=== PATIENT | female | born 1945 | race Caucasian/White ===

== ENCOUNTER 2018-03-08 07:17 | Outpatient (CLI) | payer MEDICARE ==
[2018-03-08 08:09] LABS: ALT (SGPT) 27 U/L (8-55); AST (SGOT) 25 U/L (5-34); Albumin 4.1 g/dL (3.4-4.8); Alkaline Phosphatase 128 U/L (40-150); Anion Gap 13 mmol/L (10-20); BUN (Urea Nitrogen) 18 mg/dL (9.8-20.1); Bilirubin, Total 0.8 mg/dL (0.2-1.2); Calc. Creatinine Clearance 0 mL/min (70-130); Calcium 9.7 mg/dL (7.8-10.44); Carbon Dioxide 28 mmol/L (23-31); Chloride 104 mmol/L (98-107); Cholesterol 180 mg/dl (< 200 Desired); Estimated GFR-MDRD 69; Globulin 3.2 g/dL (2.4-3.5); Glucose 116 mg/dL (83-110); HDL Cholesterol 61 mg/dL (>60 Neg Risk); LDL Cholesterol, Calculated 89 mg/dL; Potassium 3.3 mmol/L (3.5-5.1); Protein, Total 7.3 g/dL (6.0-8.3); Sodium 142 mmol/L (136-145); Triglycerides 151 mg/dL (Less than 150)
[2018-03-08 08:31] LABS: Free T4 (Free Thyroxine) 0.95 ng/dL (0.70-1.48); Thyroid Stimulating Hormone 3.2325 uIU/mL (0.35-4.94)
[2018-03-08 10:30] LABS: Hemoglobin A1c 5.9 % (4.0-6.0)
[2018-03-08 11:07] LABS: Hep C IgG Ab Non-Reactive (NonReactive); Hep C Index 0.41 S/CO (0-0.79); Vitamin D, 25 Hydroxy 38.1 ng/ml (> 30.0)
== END 2018-03-08 07:18 | disposition home or self-care (01) ==
LOC: SCSLAB 07:17
PROVIDERS: ATTEND Family Medicine
DX: Z11.59 Encounter for screening for other viral diseases (principal); E03.9 Hypothyroidism, unspecified; E78.5 Hyperlipidemia, unspecified; R73.09 Other abnormal glucose; E55.9 Vitamin D deficiency, unspecified
CPT/HCPCS: 36415; 80053; 80061; 82306; 83036; 84439; 84443; 84481; 86803

== ENCOUNTER 2019-03-12 06:13 | Outpatient (CLI) | payer MEDICARE ==
[2019-03-12 11:35] LABS: #Eosinphils 0.1 thou/uL (0.0-0.7); #Lymphocytes 0.7 thou/uL (1.20-3.40); #Monocytes 0.5 thou/uL (0.11-0.59); #Neutrophils 3.5 thou/uL (1.40-6.50); %Basophils 0.4 % (0.0-1.0); %Eosinophils 2.4 % (0.0-10.0); %Lymphocytes 15.3 % (21.0-51.0); %Monocytes 9.8 % (0.0-10.0); %Neutrophils 72.1 % (42.0-75.0); Hemoglobin 14.1 g/dL (12.0-16.0); Mean Corpuscular HGB CONC 33.3 g/dL (32.0-36.0); Mean Corpuscular Hemoglobin 30.6 pg (27.0-31.0); Mean Platelet Volume 7.2 fL (7.4-10.4); Platelet Count 207 thou/uL (130-400); RBC Distribution Width 11.9 % (11.5-14.5); Red Blood Cell (RBC) Count 4.62 mill/uL (4.20-5.40); White Blood Cell (WBC) Count 4.8 thou/uL (4.8-10.8)
[2019-03-12 11:40] LABS: PTT 27.5 SEC (22.9-36.1); Prothrombin Time 12.8 SEC (12.0-14.7)
[2019-03-12 11:54] LABS: Anion Gap 11 mmol/L (10-20); BUN (Urea Nitrogen) 18 mg/dL (9.8-20.1); Calc. Creatinine Clearance 0 mL/min (70-130); Calcium 9.4 mg/dL (7.8-10.44); Carbon Dioxide 28 mmol/L (23-31); Chloride 103 mmol/L (98-107); Estimated GFR-MDRD 66; Glucose 89 mg/dL (83-110); Potassium 3.3 mmol/L (3.5-5.1); Sodium 139 mmol/L (136-145)
[2019-03-12 11:55] LABS: Bacteria/HPF None Seen HPF (None Seen); Bilirubin Negative (Negative); Blood, Urine Negative (Negative); Clarity Clear (Clear); Glucose, Urine (Dipstick) Normal (Negative); Leukocyte 250 Leu/uL (Negative); Nitrite Negative (Negative); Protein, Urine (Dipstick) Negative (Neg-Trace); WBC/HPF 0-3 HPF (0-3)
== END 2019-03-12 06:14 | disposition home or self-care (01) ==
LOC: LABBT 06:13
PROVIDERS: ATTEND Orthopaedic Surgery
DX: Z01.818 Encounter for other preprocedural examination (principal); M17.11 Unilateral primary osteoarthritis, right knee
CPT/HCPCS: 80048; 81001; 85025; 85610; 85730; 87081; 93005; 93010

== ENCOUNTER 2019-03-20 06:12 | Day surgery (SDC) | payer MEDICARE ==
[2019-03-12 10:41] VITALS: BMI 30.9
[2019-03-20] MEDS ORDERED: Fentanyl 100 MCG/2 ML VIAL SLOW IVP PRN ×3 (07:04→08:52)
[2019-03-20] MEDS ORDERED: Zolpidem Tartrate 5 MG TAB PO PRN ×2 (07:04→08:51)
[2019-03-20] MEDS ORDERED: diphenhydrAMINE 25 MG CAP PO PRN (07:04)
[2019-03-20] MEDS ORDERED: Acetaminophen 325 MG TAB PO PRN ×2 (07:04→08:51)
[2019-03-20] MEDS ORDERED: HYDROcodone/Acetaminophen 10/325 mg Tablet PO PRN ×3 (07:04→08:51)
[2019-03-20] MEDS ORDERED: Ondansetron PF 4 MG/2 ML Vial IVP PRN ×2 (07:04→08:51)
[2019-03-20] MEDS ORDERED: Promethazine HCl 25 MG/ML VIAL IM PRN ×3 (07:04→10:52)
[2019-03-20] MEDS ORDERED: traMADol HCl 50 MG TAB PO PRN ×2 (07:04→08:51)
[2019-03-20] MEDS ORDERED: Sodium Chloride 0.9% 100 ML ONE (07:20)
[2019-03-20] MEDS ORDERED: Tranexamic Acid 1,000 MG/10 ML VIAL ONE (07:20)
[2019-03-20] MEDS ORDERED: Fentanyl 100 MCG/2 ML VIAL ONE ×2 (08:17→09:10)
[2019-03-20] MEDS ORDERED: Midazolam HCl 2 mg/2 ml Vial ONE (08:17)
[2019-03-20] MEDS ORDERED: Ropivacaine HCl/PF 250 ML in Premix Bag 1 BAG NERVE BLCK SCH (08:51)
[2019-03-20] MEDS ORDERED: Non-Formulary Item 1 EACH (Multivit-Min/Fa/Lycopene/Lut [Centrum Silver] 1 TABLET) PO SCH (09:00)
[2019-03-20] MEDS ORDERED: Promethazine HCl 25 MG/ML VIAL SLOW IVP PRN (10:52)
[2019-03-20] MEDS ORDERED: Meperidine HCl/PF 25 MG/ML VIAL SLOW IVP PRN (10:52)
[2019-03-20] MEDS ORDERED: PACU-Morphine 4MG/ML VIAL SLOW IVP PRN (10:52)
--- NOTE | 2019-03-20 11:39 | RAD ---
Exam:2 views right knee HISTORY: Status post arthroplasty COMPARISON: None FINDINGS: Postoperative changes compatible with right knee arthroplasty. Near anatomic alignment. IMPRESSION: Expected postoperative changes
[2019-03-20] MEDS ORDERED: EPHEDRINE 25 MG/5 ML SYRINGE ONE (11:56)
[2019-03-20] MEDS ORDERED: Bupivacaine HCl 0.5%/Epinephrine 1:200,000/PF 30 ml Vial ONE (11:56)
[2019-03-20] MEDS ORDERED: Lidocaine 1% PF 5 ML VIAL ONE (11:56)
[2019-03-20] MEDS ORDERED: Dexamethasone 20 MG/5 ML VIAL ONE (11:56)
[2019-03-20] MEDS ORDERED: Ondansetron PF 4 MG/2 ML Vial ONE (11:56)
[2019-03-20] MEDS ORDERED: Ropivacaine 0.2% HCl/PF (40 MG/20 ML VIAL) ONE (11:56)
[2019-03-20] MEDS ORDERED: PROPOFOL 200 MG/20 ML VIAL ONE (11:56)
[2019-03-20] MEDS ORDERED: Ketorolac Tromethamine 30 MG/ML VIAL IVP SCH (14:00)
--- NOTE | 2019-03-20 14:10 | OP ---
DATE OF PROCEDURE: 03/20/2019 This is Julio Franks PA-C dictating a report for Glen Romano MD. 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 PROCEDURE PERFORMED: Cemented cruciate-sparing computer-assisted navigated right total knee arthroplasty. SURGEON: Glen Romano MD FAMILY SERVICE COUNSELOR: Julio Franks PA-C ANESTHESIA: General via LMA, augmented with indwelling adductor canal block and a single-shot sciatic block. COMPONENTS USED: [employer] Triathlon size 4 cruciate-retaining femoral component with a size 3 cemented primary tibial base plate, 11-mm polyethylene fixed bearing insert, and a 29 patella button. FINDINGS: End-stage severe degenerative tricompartmental disease, [id number] arthrosis, periarticular osteophyte formation, large serous effusion, hypertrophic synovium, and severe changes consistent with tricompartmental osteoarthritis. DRAINS: None. SPECIMENS: None. COMPLICATIONS: None. COUNTS: Correct. ESTIMATED BLOOD LOSS: Less than 100. TOURNIQUET TIME: 64 minutes at 300 mmHg. INPUT: 1300 mL of crystalloid. OUTPUT: 200 mL of clear yellow urine. INDICATIONS FOR SURGERY: Madeleine is a 73-year-old white female who has had progressive right knee pain and problem with standing and walking for the last 10 years. She has failed conservative management and elected to proceed with total knee arthroplasty as definitive treatment of pain. PROCEDURE IN DETAIL: After informed consent was obtained in the preoperative holding area, the patient was taken to the operative suite where general anesthesia was induced. Once adequate level of general anesthesia was obtained, the patient was positioned and a well-padded tourniquet was placed around the right proximal thigh. The right lower extremity was then prepped and draped in the usual sterile fashion. Prior to exsanguination, a time-out was called and all members of the surgical team agreed upon site, surgeon, and patient. The extremity was then exsanguinated and the tourniquet was raised. A midline longitudinal incision was then made directly over the patella extending 2 fingerbreadths above the superior pole of the patella and 2 fingerbreadths inferior to the inferior patellar pole of the patella. Deeper subcutaneous layers were dissected sharply and local bleeding was controlled with Bovie electrocautery. A quad tendon longitudinal split was then made sharply and a median parapatellar arthrotomy was carried out both sharp and with Bovie electrocautery, carried down to 1 fingerbreadth medial to the tibial tubercle. The knee was then placed into flexion and the patella was everted nicely, and a copious fat pad ectomy was performed, allowing for greater exposure of the tibia. The computer-assisted distal femoral fiducial was then placed and pinned firmly, and the distal femoral cutting guide was pinned firmly into place. The oscillating saw was then used to remove the appropriate amount of bone. The 4-in-1 cutting block was then placed on the distal femur and the oscillating saw was used to remove the appropriate amount of bone off the anterior, posterior, and chamfer cuts. After completion of bone cuts, the anterior cruciate ligament was resected sharply and the posterior cruciate ligament retractor was placed and the tibia was subluxed for better exposure. Partial meniscectomies were carried out, and the tibial computer-assisted fiducial was pinned, and the cutting guide was placed. Oscillating saw was then used to remove the bone, with Hohmann retractors used to take care and protect the collateral ligaments. After the tibial resection was performed, a laminar automatic driller and reamer was placed in between the freshened bone cuts. The knee placed at 90 degrees and further bilateral meniscectomies were carried out, and the curved osteotome and curettage were used to remove any excess bone spurs in the posterior compartment. The trial femoral component, tibial baseplate were placed with the appropriate polyethylene trial insert with an appropriate polyethylene spacer and patellar button. The knee was taken through full range of motion with flexion and extension from 0 to 90 degrees and patellar broach squarely in the trochlea without any squinting or subluxation noted. The knee was also stable to varus and valgus stressing at 0, 15, 45, and 90 degrees of flexion. The drawer was negative. All trial components were then removed and the keel punch was used to provide the appropriate defect in the tibia with a mallet. The freshened bone cuts were copiously irrigated with pulsatile lavage of about 1.5 L to remove all excess debris. The freshened bone cuts were then dried with suction and lap sponge. The knee was placed in flexion and retractors were placed to provide access to all bone cuts. Tobramycin-impregnated methyl methacrylate cement was then placed on the freshened bone cuts and implants which were malleted firmly into place. Curettage and [place] elevators were used to remove any excess bone cement. The knee was placed into full extension and the patellar button was placed under compression, and the cement was allowed to cure. Once completed, the components were again taken through full range of motion and copious irrigation of the knee was carried out with another liter of normal saline. All components were inspected fully with full range of motion and varus and valgus stressing. There was no laxity noted and full extension was observed clinically. Primary closure was accomplished with #2 interrupted Vicryl stitch of the arthrotomy defect. This was oversewn with a #2 running Quill barbed stitch. The subcutaneous layer was then closed with a running 0 barbed Monocryl stitch and skin closure accomplished with a running subcuticular 3-0 Monocryl barbed Quill stitch and augmented with cement on the skin. Tourniquet was lowered. Good spontaneous return of distal pulses was noted clinically and a sterile dressing was applied to the incision. The procedure was terminated without any complications. The patient was awakened in the operative suite and taken to the recovery room in stable condition. Job ID: [id number]
[2019-03-20] MEDS: Aspirin 81 mg Enteric Coated Tablet PO SCH ×2 (17:24→20:50)
[2019-03-20] MEDS: CEFAZOLIN 2 GM in Premix Bag 1 BAG IVPB SCH ×2 (17:24→23:51)
[2019-03-20] MEDS: Sodium Chloride 0.9% 1,000 ML IV SCH ×2 (17:24→17:56)
[2019-03-20] MEDS: Magnesium Oxide 250 MG TAB PO SCH (17:25)
[2019-03-20] MEDS: Hydrochlorothiazide 25 MG TAB PO SCH (17:25)
[2019-03-20] MEDS: Ketorolac Tromethamine 30 MG/ML VIAL IVP SCH ×3 (17:25→23:50)
[2019-03-20] MEDS: Losartan/Hydrochlorothiazide 100 mg/25 mg Tablet PO SCH (17:25)
[2019-03-20 18:43] LABS: #Lymphocytes 0.2 thou/uL (1.20-3.40); #Monocytes 0.4 thou/uL (0.11-0.59); #Neutrophils 6.4 thou/uL (1.40-6.50); %Basophils 0.5 % (0.0-1.0); %Eosinophils 0.1 % (0.0-10.0); %Lymphocytes 2.6 % (21.0-51.0); %Monocytes 5.8 % (0.0-10.0); %Neutrophils 91.1 % (42.0-75.0); Hemoglobin 12.6 g/dL (12.0-16.0); Mean Corpuscular HGB CONC 33.8 g/dL (32.0-36.0); Mean Corpuscular Hemoglobin 31.7 pg (27.0-31.0); Mean Platelet Volume 7.4 fL (7.4-10.4); Platelet Count 156 thou/uL (130-400); Red Blood Cell (RBC) Count 3.99 mill/uL (4.20-5.40); White Blood Cell (WBC) Count 7.1 thou/uL (4.8-10.8)
[2019-03-20 19:04] LABS: ALT (SGPT) 22 U/L (8-55); AST (SGOT) 19 U/L (5-34); Albumin 3.6 g/dL (3.4-4.8); Alkaline Phosphatase 88 U/L (40-110); Anion Gap 12 mmol/L (10-20); BUN (Urea Nitrogen) 15 mg/dL (9.8-20.1); Bilirubin, Total 0.3 mg/dL (0.2-1.2); Calc. Creatinine Clearance 60 mL/min (70-130); Calcium 8.4 mg/dL (7.8-10.44); Carbon Dioxide 25 mmol/L (23-31); Chloride 103 mmol/L (98-107); Estimated GFR-MDRD 54; Globulin 2.4 g/dL (2.4-3.5); Glucose 279 mg/dL (83-110); Magnesium 1.5 mg/dL (1.6-2.6); Potassium 3.5 mmol/L (3.5-5.1); Sodium 136 mmol/L (136-145)
--- NOTE | 2019-03-20 19:05 | CON ---
DATE OF CONSULTATION: 03/20/2019 REASON FOR CONSULTATION: Medical management. HISTORY OF PRESENT ILLNESS: Mrs. Silva is a pleasant 73-year-old woman, who is status post right total knee arthroplasty done earlier today. She has been referred for medical management and has a history of hypertension, hyperlipidemia, anxiety, and hypothyroidism. At present, the patient states she feels well and is without any complaints. She states she feels like she needs to have a bowel movement, but denies any abdominal pain or cramping. She has been passing flatus. Has had dinner and denies having any nausea or vomiting. Has not had any chest pain, palpitations, or shortness of breath. Denies any recent fevers, chills, or sweats. Overall, she feels well and is without any complaints. PAST MEDICAL HISTORY: 1. Hypertension. 2. Anxiety. 3. Depression. 4. Hypothyroidism. 5. Overactive bladder. 6. History of breast cancer. 7. Hyperlipidemia. PAST SURGICAL HISTORY: 1. Spine surgery for spinal stenosis. 2. Left knee replacement. 3. Hysterectomy. 4. Appendectomy. 5. Right mastectomy. 6. Recently, she has undergone a right total knee arthroplasty. FAMILY HISTORY: Hypertension, diabetes, lung cancer, and osteoarthritis. SOCIAL HISTORY: The patient is a former smoker. Denies any alcohol consumption or illicit drug use. She is and fully independent at baseline. ALLERGIES: NO KNOWN DRUG ALLERGIES. CURRENT MEDICATIONS: 1. Atorvastatin. 2. vitamin D3. 3. Hydrochlorothiazide. 4. Ibuprofen. 5. Synthroid. 6. Magnesium. 7. Multivitamin. 8. Tramadol. 9. [place]-3. 10. Venlafaxine. PHYSICAL EXAMINATION: GENERAL: The patient appears well developed, well nourished, is in no acute distress. HEENT: Normocephalic and atraumatic. Pupils are equal, round, and reactive to light. Sclerae icterus. Oropharynx is clear. NECK: Supple. No lymphadenopathy. LUNGS: Clear bilaterally without wheezes, rales, or rhonchi. CARDIAC: Regular rate and rhythm. ABDOMEN: Soft, nontender, and nondistended. Normoactive bowel sounds present. No guarding or rigidity. EXTREMITIES: No lower leg swelling or edema. NEUROLOGIC: Alert and oriented x3. SKIN: Warm and dry. LABORATORY DATA: Labs obtained on March 12, 2019 showed white count 4.8, hemoglobin 14.1, hematocrit 42.5, platelets 207, neutrophils 72.1%. Sodium 139, potassium 3.3, BUN 18, creatinine 0.85, GFR 66, and glucose 89. Urinalysis done at that time as well showed 2 urobilinogen, and 250 leukocyte esterase, 4 to 6 blood cells, and 4 to 6 squamous epithelial cells. Otherwise unremarkable. No nitrites. No bacteria. IMPRESSION AND PLAN: Ms. Silva is a pleasant 73-year-old woman, who is status post right knee total knee arthroplasty, who has been referred to us for medical management of the followin. Hypertension. Monitor blood pressure. Home medications have been restarted. 2. Hyperlipidemia. Home medications have been restarted. 3. Hypothyroidism. Synthroid has been restarted. 4. Anxiety/depression. Home medication has been restarted. 5. Gastrointestinal prophylaxis with famotidine. 6. Deep venous thrombosis prophylaxis with mechanical SCDs. 7. Code status full. Surrogate decision maker is her , Yasmani Silva. We will obtain repeat laboratory studies. The patient had low potassium with labs done last week and she takes magnesium at baseline; therefore, we will replace electrolytes as needed. Thank you for this consultation. We will continue to follow this patient with you. Job ID: [id number]
[2019-03-20] MEDS: Venlafaxine HCl XR 75 MG CAP PO SCH (20:50)
[2019-03-20] MEDS: Famotidine 20 MG TAB PO SCH (20:50)
[2019-03-20] MEDS: Atorvastatin Calcium 40 MG TAB PO SCH (20:50)
[2019-03-21] MEDS: HYDROcodone/Acetaminophen 10/325 mg Tablet PO PRN ×3 (04:41→17:32)
[2019-03-21] MEDS: Sodium Chloride 0.9% 1,000 ML IV SCH ×3 (04:46→22:33)
[2019-03-21 05:25] LABS: #Lymphocytes 0.5 thou/uL (1.20-3.40); #Monocytes 0.8 thou/uL (0.11-0.59); #Neutrophils 4.8 thou/uL (1.40-6.50); %Basophils 0.1 % (0.0-1.0); %Eosinophils 0.1 % (0.0-10.0); %Lymphocytes 8.2 % (21.0-51.0); %Monocytes 12.4 % (0.0-10.0); %Neutrophils 79.3 % (42.0-75.0); Hemoglobin 11.2 g/dL (12.0-16.0); Mean Corpuscular HGB CONC 34.9 g/dL (32.0-36.0); Mean Corpuscular Hemoglobin 32.5 pg (27.0-31.0); Mean Platelet Volume 7.1 fL (7.4-10.4); Platelet Count 150 thou/uL (130-400); RBC Distribution Width 11.8 % (11.5-14.5); Red Blood Cell (RBC) Count 3.46 mill/uL (4.20-5.40)
[2019-03-21 05:42] LABS: Anion Gap 9 mmol/L (10-20); BUN (Urea Nitrogen) 13 mg/dL (9.8-20.1); Calc. Creatinine Clearance 79 mL/min (70-130); Calcium 8.3 mg/dL (7.8-10.44); Carbon Dioxide 28 mmol/L (23-31); Chloride 103 mmol/L (98-107); Estimated GFR-MDRD 73; Glucose 109 mg/dL (83-110); Potassium 3.6 mmol/L (3.5-5.1); Sodium 136 mmol/L (136-145)
[2019-03-21] MEDS: Levothyroxine Sodium 88 MCG TAB PO SCH (06:28)
[2019-03-21] MEDS: Ketorolac Tromethamine 30 MG/ML VIAL IVP SCH ×4 (06:28→23:17)
[2019-03-21] MEDS: Losartan/Hydrochlorothiazide 100 mg/25 mg Tablet PO SCH (09:16)
[2019-03-21] MEDS: Famotidine 20 MG TAB PO SCH ×2 (09:19→20:58)
[2019-03-21] MEDS: Aspirin 81 mg Enteric Coated Tablet PO SCH ×2 (09:19→20:58)
[2019-03-21] MEDS: Magnesium Oxide 250 MG TAB PO SCH (09:19)
[2019-03-21] MEDS: Ferrous Gluconate 324 MG TAB PO SCH ×2 (09:19→17:28)
[2019-03-21] MEDS: Multivitamin W/ Minerals 1 TAB PO SCH (09:19)
[2019-03-21] MEDS: Senokot S 8.6-50 MG TAB PO SCH ×2 (09:19→20:58)
[2019-03-21] MEDS: Hydrochlorothiazide 25 MG TAB PO SCH (09:22)
--- NOTE | 2019-03-21 11:59 | PDOC.HOSPP ---
- Subjective Encounter Date: 03/21/19 Encounter Time: 10:00 Subjective: Patient seen and examined. No new complaints. No overnight events - Objective Vital Signs & Weight: Vital Signs (12 hours) Temp Pulse Resp BP BP Pulse Ox 03/21/19 11:43 97.7 F 63 16 96/60 95 03/21/19 07:25 97.9 F 57 L 16 97/57 L 96 03/21/19 06:20 97.5 F L 57 L 18 98/56 L 97 03/21/19 04:15 97.6 F 63 16 118/72 97 03/20/19 23:59 97.6 F 62 16 106/69 96 Weight Weight 169 lb I&O: 03/20/19 03/21/19 03/22/19 06:59 06:59 06:59 Intake Total 720 Output Total 1800 Balance -1080 Result Diagrams: 03/21/19 04:57 03/21/19 04:57 Hospitalist ROS - Review of Systems ENT: denies: ear pain, ear discharge, nose pain, nose discharge, nose congestion , mouth pain, mouth swelling, throat pain, throat swelling, other Respiratory: denies: cough, dry, shortness of breath, hemoptysis, SOB with excertion, pleuritic pain, sputum, wheezing, other Cardiovascular: denies: chest pain, palpitations, orthopnea, paroxysmal noc. dyspnea, edema, light headedness, other Gastrointestinal: denies: nausea, vomiting, abdominal pain, diarrhea, constipation, melena, hematochezia, other Genitourinary: denies: dysuria, frequency, incontinence, hematuria, retention, other Musculoskeletal: denies: neck pain, shoulder pain, arm pain, back pain, hand pain, leg pain, foot pain, other - Medication Medications: Active Medications Generic Name Dose Route Start Last Admin Trade Name Freq PRN Reason Stop Dose Admin Hydrocodone Bitart/Acetaminophen 2 tab 03/20/19 08:51 03/21/19 04:41 [place] 10/325 PO 2 tab Q4H PRN Administration PAIN (4-6) Aspirin 81 mg 03/20/19 09:00 03/21/19 09:19 Ecotrin PO 81 mg BID DONOVAN Administration Atorvastatin Calcium 40 mg 03/20/19 21:00 03/20/19 20:50 Lipitor PO 40 mg HS DONOVAN Administration Cholecalciferol 2,000 units 03/20/19 09:00 03/21/19 09:19 Vitamin D3 PO 2,000 units DAILY [facility] Administration Famotidine 20 mg 03/20/19 21:00 03/21/19 09:19 Pepcid PO 20 mg BID DONOVAN Administration Ferrous Gluconate 324 mg 03/21/19 08:00 03/21/19 09:19 Fergon PO 324 mg BID-WM DONOVAN Administration HCTZ/Losartan Potassium 1 tab 03/20/19 09:00 03/21/19 09:16 Hyzaar 100/25 PO Not Given DAILY DONOVAN Hydrochlorothiazide 12.5 mg 03/20/19 09:00 03/21/19 09:22 Hydrochlorothiazide PO Not Given DAILY [facility] Sodium Chloride 1,000 mls @ 100 mls/hr 03/20/19 07:15 03/21/19 04:46 Normal Saline 0.9% IV Not Given .Q10H DONOVAN Iron/Minerals/Multivitamins 1 tab 03/21/19 09:00 03/21/19 09:19 Theragran M PO 1 tab DAILY [facility] Administration Ketorolac Tromethamine 15 mg 03/20/19 12:00 03/21/19 06:28 Toradol IVP 03/22/19 06:01 15 mg Q6HR DONOVAN Administration Levothyroxine Sodium 88 mcg 03/21/19 06:00 03/21/19 06:28 Synthroid PO 88 mcg 0600 [facility] Administration Magnesium Oxide 250 mg 03/20/19 09:00 03/21/19 09:19 Magnesium Oxide PO 250 mg DAILY [facility] Administration Ondansetron HCl 4 mg 03/20/19 08:51 03/21/19 06:28 Zofran IVP 4 mg Q6H PRN Administration Nausea/Vomiting Senna/Docusate Sodium 2 tab 03/21/19 09:00 03/21/19 09:19 Senokot S PO 2 tab BID [facility] Administration Venlafaxine HCl 75 mg 03/20/19 21:00 03/20/19 20:50 Effexor Xr PO 75 mg HS DONOVAN Administration - Exam General Appearance: NAD, awake alert Eye: PERRL, anicteric sclera ENT: normocephalic atraumatic, no oropharyngeal lesions Neck: supple, symmetric, no JVD, no thyromegaly Heart: RRR, no murmur, no gallops, no rubs Respiratory: CTAB, no wheezes, no rales Gastrointestinal: soft, non-tender, non-distended, normal bowel sounds Extremities: no cyanosis, no clubbing Skin: normal turgor, no lesions Neurological: no focal deficits Musculoskeletal: normal tone, normal strength Psychiatric: normal affect, normal behavior Hosp A/P (1) Status post total right knee replacement Code(s): Z96.651 - PRESENCE OF RIGHT ARTIFICIAL KNEE JOINT Status: Acute (2) Dyslipidemia Code(s): E78.5 - HYPERLIPIDEMIA, UNSPECIFIED Status: Chronic (3) HTN (hypertension) Code(s): I10 - ESSENTIAL (PRIMARY) HYPERTENSION Status: Chronic (4) Hypothyroidism Code(s): E03.9 - HYPOTHYROIDISM, UNSPECIFIED Status: Chronic (5) Obesity (BMI 30.0-34.9) Code(s): E66.9 - OBESITY, UNSPECIFIED Status: Chronic - Plan old records reviewed/req, plan discussed w/ family, PT/OT 03/21/19 continue PT/OT medication reviewed and continue supportive care and symptomatic treatment stable medically
[2019-03-21] MEDS: traMADol HCl 50 MG TAB PO PRN (20:57)
[2019-03-21] MEDS: Atorvastatin Calcium 40 MG TAB PO SCH (20:58)
[2019-03-21] MEDS: Venlafaxine HCl XR 75 MG CAP PO SCH (20:59)
[2019-03-22 05:41] LABS: Hemoglobin 10.5 g/dL (12.0-16.0); Mean Corpuscular HGB CONC 32.8 g/dL (32.0-36.0); Mean Corpuscular Hemoglobin 31.5 pg (27.0-31.0); Mean Platelet Volume 7.4 fL (7.4-10.4); Platelet Count 144 thou/uL (130-400); RBC Distribution Width 11.9 % (11.5-14.5); Red Blood Cell (RBC) Count 3.33 mill/uL (4.20-5.40); White Blood Cell (WBC) Count 5.9 thou/uL (4.8-10.8)
[2019-03-22] MEDS: Ketorolac Tromethamine 30 MG/ML VIAL IVP SCH (06:03)
[2019-03-22] MEDS: Levothyroxine Sodium 88 MCG TAB PO SCH (06:03)
[2019-03-22] MEDS: Senokot S 8.6-50 MG TAB PO SCH (08:51)
[2019-03-22] MEDS: Aspirin 81 mg Enteric Coated Tablet PO SCH (08:51)
[2019-03-22] MEDS: Famotidine 20 MG TAB PO SCH (08:51)
[2019-03-22] MEDS: Ferrous Gluconate 324 MG TAB PO SCH (08:51)
[2019-03-22] MEDS: Multivitamin W/ Minerals 1 TAB PO SCH (08:51)
[2019-03-22] MEDS: Magnesium Oxide 250 MG TAB PO SCH (08:51)
[2019-03-22] MEDS: traMADol HCl 50 MG TAB PO PRN (08:52)
[2019-03-22] MEDS: Hydrochlorothiazide 25 MG TAB PO SCH (08:59)
[2019-03-22] MEDS: Sodium Chloride 0.9% 1,000 ML IV SCH (08:59)
[2019-03-22] MEDS: Losartan/Hydrochlorothiazide 100 mg/25 mg Tablet PO SCH (08:59)
[2019-03-22] MEDS: HYDROcodone/Acetaminophen 10/325 mg Tablet PO PRN (10:32)
--- NOTE | 2019-03-22 10:51 | DIS ---
DATE OF ADMISSION: 03/20/2019 DATE OF DISCHARGE: 03/22/2019 This is Gely Dubon PA-C dictating a report for Glen Romano MD. CONSULTANTS ON THE CASE: Include [facility] as well as [facility]. 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 PROCEDURE PERFORMED: Cemented cruciate sparing computer-assisted navigation right total knee arthroplasty. BRIEF HOSPITAL COURSE: This is a 73-year-old female, who was indicated for the above-mentioned procedure. She had failed conservative measures prior to proceeding with the surgery. In the operative suite, she did well and postoperatively she was admitted to [address] Here, she worked with physical and occupational therapist. Her pain was managed by [facility]. She stood up and mobilized on the day of surgery, as well as postoperative day #1. On postoperative day #2, she was doing very well and was discharged home. No complications were incurred throughout her hospital stay. DISCHARGE DISPOSITION: Home. DISCHARGE CONDITION: Stable. DISCHARGE INSTRUCTIONS: The patient will keep her surgical site clean, dry, and intact. She will follow up with Dr. Romano as scheduled. DISCHARGE MEDICATIONS: See MAR. Job ID: [id number]
[2019-03-22 13:02] VITALS: BP 127/76; TEMP 98.1
--- NOTE | 2019-03-22 13:20 | PDOC.HOSPP ---
- Subjective Encounter Date: 03/22/19 Encounter Time: 09:45 Subjective: Patient seen and examined. No new complaints. No overnight events - Objective Vital Signs & Weight: Vital Signs (12 hours) Temp Pulse Resp BP Pulse Ox 03/22/19 13:01 98.1 F 63 14 127/76 95 03/22/19 07:28 98.7 F 64 14 111/66 94 L 03/22/19 03:20 98.1 F 62 16 113/65 95 Weight Admit Weight 164 lb Weight 164 lb I&O: 03/21/19 03/22/19 03/23/19 06:59 06:59 06:59 Intake Total 720 1680 Output Total 1800 Balance -1080 1680 Result Diagrams: 03/22/19 05:02 03/21/19 04:57 Hospitalist ROS - Review of Systems ENT: denies: ear pain, ear discharge, nose pain, nose discharge, nose congestion , mouth pain, mouth swelling, throat pain, throat swelling, other Respiratory: denies: cough, dry, shortness of breath, hemoptysis, SOB with excertion, pleuritic pain, sputum, wheezing, other Cardiovascular: denies: chest pain, palpitations, orthopnea, paroxysmal noc. dyspnea, edema, light headedness, other Gastrointestinal: denies: nausea, vomiting, abdominal pain, diarrhea, constipation, melena, hematochezia, other Genitourinary: denies: dysuria, frequency, incontinence, hematuria, retention, other Musculoskeletal: denies: neck pain, shoulder pain, arm pain, back pain, hand pain, leg pain, foot pain, other - Medication Medications: Active Medications Generic Name Dose Route Start Last Admin Trade Name Reggieq PRN Reason Stop Dose Admin Hydrocodone Bitart/Acetaminophen 2 tab 03/20/19 08:51 03/22/19 10:32 [place] 10/325 PO 2 tab Q4H PRN Administration PAIN (4-6) Aspirin 81 mg 03/20/19 09:00 03/22/19 08:51 Ecotrin PO 81 mg BID DONOVAN Administration Atorvastatin Calcium 40 mg 03/20/19 21:00 03/21/19 20:58 Lipitor PO 40 mg HS DONOVAN Administration Cholecalciferol 2,000 units 03/20/19 09:00 03/22/19 08:51 Vitamin D3 PO 2,000 units DAILY [facility]AN Administration Famotidine 20 mg 03/20/19 21:00 03/22/19 08:51 Pepcid PO 20 mg BID DONOVAN Administration Fentanyl 50 mcg 03/20/19 08:52 03/21/19 19:03 Sublimaze SLOW IVP 50 mcg Q1H PRN Administration breakthrough pain Ferrous Gluconate 324 mg 03/21/19 08:00 03/22/19 08:51 Fergon PO 324 mg BID-WM DONOVAN Administration HCTZ/Losartan Potassium 1 tab 03/20/19 09:00 03/22/19 08:59 Hyzaar 100/25 PO Not Given DAILY DONOVAN Hydrochlorothiazide 12.5 mg 03/20/19 09:00 03/22/19 08:59 Hydrochlorothiazide PO Not Given DAILY [facility]AN Sodium Chloride 1,000 mls @ 100 mls/hr 03/20/19 07:15 03/22/19 08:59 Normal Saline 0.9% IV Not Given .Q10H DONOVAN Ropivacaine 250 ml/ Device 250 mls @ 10 mls/hr 03/20/19 08:51 03/21/19 12:53 NERVE BLCK 03/23/19 08:50 250 mls INF DONOVAN Administration Iron/Minerals/Multivitamins 1 tab 03/21/19 09:00 03/22/19 08:51 Theragran M PO 1 tab DAILY [facility] Administration Levothyroxine Sodium 88 mcg 03/21/19 06:00 03/22/19 06:03 Synthroid PO 88 mcg 0600 DONOVAN Administration Magnesium Oxide 250 mg 03/20/19 09:00 03/22/19 08:51 Magnesium Oxide PO 250 mg DAILY [facility]AN Administration Ondansetron HCl 4 mg 03/20/19 08:51 03/21/19 06:28 Zofran IVP 4 mg Q6H PRN Administration Nausea/Vomiting Senna/Docusate Sodium 2 tab 03/21/19 09:00 03/22/19 08:51 Senokot S PO 2 tab BID DONOVAN Administration Tramadol HCl 100 mg 03/20/19 08:51 03/22/19 08:52 Ultram PO 100 mg Q6H PRN Administration Moderate Pain 4-6 Venlafaxine HCl 75 mg 03/20/19 21:00 03/21/19 20:59 Effexor Xr PO 75 mg HS DONOVAN Administration - Exam General Appearance: NAD, awake alert Eye: PERRL, anicteric sclera ENT: normocephalic atraumatic, no oropharyngeal lesions Neck: supple, symmetric, no JVD Heart: RRR, no murmur, no gallops, no rubs Respiratory: CTAB, no wheezes, no rales, no ronchi Gastrointestinal: soft, non-tender, non-distended, normal bowel sounds Extremities: no cyanosis, no clubbing Skin: normal turgor, no lesions Neurological: no focal deficits Musculoskeletal: normal tone, normal strength Hosp A/P (1) Status post total right knee replacement Code(s): Z96.651 - PRESENCE OF RIGHT ARTIFICIAL KNEE JOINT Status: Acute (2) Dyslipidemia Code(s): E78.5 - HYPERLIPIDEMIA, UNSPECIFIED Status: Chronic (3) HTN (hypertension) Code(s): I10 - ESSENTIAL (PRIMARY) HYPERTENSION Status: Chronic (4) Hypothyroidism Code(s): E03.9 - HYPOTHYROIDISM, UNSPECIFIED Status: Chronic (5) Obesity (BMI 30.0-34.9) Code(s): E66.9 - OBESITY, UNSPECIFIED Status: Chronic - Plan old records reviewed/req 03/21/19 continue PT/OT medication reviewed and continue supportive care and symptomatic treatment stable medically 03/22/19 stable medically plan for discharge today will sign off
== END 2019-03-22 14:10 | disposition home or self-care (01) ==
LOC: SDC 06:12 → SURG A 07:00 → SDC 03-22 14:10
PROVIDERS: ATTEND Orthopaedic Surgery
PROC: 0SRC0J9 Replacement of Right Knee Joint with Synthetic Substitute, Cemented, Open Approach (ICD-10-PCS; principal; 2019-03-20)
PROC: 8E0YXBZ Computer Assisted Procedure of Lower Extremity (ICD-10-PCS; 2019-03-20)
DX: M17.11 Unilateral primary osteoarthritis, right knee (principal); I10 Essential (primary) hypertension; E78.5 Hyperlipidemia, unspecified; E03.9 Hypothyroidism, unspecified; K21.9 Gastro-esophageal reflux disease without esophagitis; M19.90 Unspecified osteoarthritis, unspecified site; F41.9 Anxiety disorder, unspecified; F32.9 Major depressive disorder, single episode, unspecified; E66.9 Obesity, unspecified; Z68.31 Body mass index [BMI] 31.0-31.9, adult; Z87.891 Personal history of nicotine dependence; Z79.899 Other long term (current) drug therapy; Z96.652 Presence of left artificial knee joint; Z98.1 Arthrodesis status
CPT/HCPCS: 20985; 27447; 73560; 80048; 83735; 85027; 97110; 97116 ×3; 97139 ×3; 97150 ×2; 97530 ×2; 98961; C1713; C1776; 36415; 80053; 84443; 85025; J0670; J0690; J1100; J1885; J2001; J2250; J2405; J2704; J2795; J3010; J3370; J3490

== ENCOUNTER 2019-07-20 14:44 | Outpatient (CLI) | payer MEDICARE ==
--- NOTE | 2019-07-20 17:25 | RAD ---
EXAM: TWO VIEWS OF THE CERVICAL SPINE 07/20/19 HISTORY: Neck pain. FINDINGS: Two views of the cervical spine shows normal height and alignment of the vertebral bodies without fra cture or subluxation. Intervertebral discs are narrowed and moderate osteophytes are seen throughout the cervical spine. No prevertebral soft tissue swelling is seen. Posterior facet arthrosis is seen t hroughout the cervical spine. IMPRESSION: Moderate degenerative changes of the cervical spine as above. POS: MELISSAA
--- NOTE | 2019-07-20 18:29 | RAD ---
TWO VIEWS THORACIC SPINE: Comparison: None. History: Back pain. FINDINGS: Two views of the thoracic spine shows normal height and alignment of the vertebral bodies without fra cture or subluxation. Intervertebral discs are narrowed throughout the thoracic spine with moderate o steophytes throughout the thoracic spine. IMPRESSION: Moderate degenerative changes of the thoracic spine without acute osseous abnormality. POS: EAA
--- NOTE | 2019-07-20 18:30 | RAD ---
TWO VIEWS LUMBOSACRAL SPINE: History: Low back pain FINDINGS: Two views of the lumbosacral spine shows narrowing of the L4-5 intervertebral discs. There is subtle grade I retrolisthesis at this level. The vertebral bodies demonstrate normal height. Posterior facet arthrosis is seen throughout the lower lumbosacral spine. The patient has had laminectomies at L3, L 4, and L5. Vascular calcifications are seen in the aorta. IMPRESSION: Degenerative and post-surgical changes of the lumbar spine as above. POS: SIERRA
== END 2019-07-20 14:45 | disposition home or self-care (01) ==
LOC: SCSRAD 14:44
PROVIDERS: ATTEND Family Medicine
DX: M99.02 Segmental and somatic dysfunction of thoracic region (principal); M54.6 Pain in thoracic spine; M99.03 Segmental and somatic dysfunction of lumbar region; M99.14 Subluxation complex (vertebral) of sacral region; M54.42 Lumbago with sciatica, left side; M54.2 Cervicalgia; M99.01 Segmental and somatic dysfunction of cervical region; M47.816 Spondylosis without myelopathy or radiculopathy, lumbar region; M47.814 Spondylosis without myelopathy or radiculopathy, thoracic region; M47.812 Spondylosis without myelopathy or radiculopathy, cervical region; Z98.890 Other specified postprocedural states
CPT/HCPCS: 72040; 72070; 72100

== ENCOUNTER 2019-08-07 14:41 | Outpatient (CLI) | payer MEDICARE, OTHER ==
--- NOTE | 2019-08-07 15:38 | MRI ---
MRI Lumbar Spine Noncontrast: HISTORY: Acute back pain with left sciatica. COMPARISON: 12/26/2013 FINDINGS: A subcentimeter increased T2-weighted signal intensity focus is seen at the inferior pole left kidney also seen on prior study in 2014 probably related to a tiny cyst. Remainder of the retroperitoneal structures demonstrate a normal nonenhanced MRI appearance. Conus medullaris is normal in morphology and terminates at the L1-2 level. Multilevel degenerative changes are seen in the lumbar spine. Right convex scoliosis lumbar spine is present. Mild heterogeneity of the bone marrow is present. T10-11, 11-12, and T12-L1 levels: Minimal disc osteophyte complexes are present at these levels witho ut significant central canal or neural foraminal narrowing seen at these levels. L1-2: Mild disc osteophyte complex is present. There is slight effacement of the ventral aspect of th e thecal sac. Neural foramina are patent. L2-3: Mild disc osteophyte complex is present. Moderate facet hypertrophic changes and ligamentous th ickening are present. There is mild generalized narrowing of the central spinal canal with mild right-sided neural foraminal narrowing. The left neural foramen is patent. L3-4: Mild disc osteophyte complex. Facet hypertrophic changes are noted. Laminectomy defect is seen. No significant central canal or neural foraminal narrowing is present. L4-5: Severe loss of intervertebral disc height. Endplate degenerative changes are present at this le steve. Disc osteophyte complex is present. Laminectomy defect is seen posteriorly. Severe right and moderate left-sided neural foraminal narrowing are present. There is slight mass effect on the anteri or aspect of thecal sac. L5-S1: There is loss of intervertebral disc height. No significant disc bulge or disc herniation is p resent at this level. Laminectomy defect is present at this level. Mild facet degenerative changes are seen. The central spinal canal is patent. Mild to moderate bilateral neural foraminal narrowing i s present greater on the left. IMPRESSION: 1. Multilevel degenerative changes in the lumbar spine with greatest degree of neural foraminal narro wing seen at the lowest 2 levels of the lumbar spine with degrees of neural foraminal narrowing overall similar to prior study. 2. Laminectomy defects seen posteriorly involving the lower lumbar spine.
== END 2019-08-07 14:42 | disposition home or self-care (01) ==
LOC: SCSMRI 14:41
PROVIDERS: ATTEND Family Medicine
DX: M54.42 Lumbago with sciatica, left side (principal); M99.03 Segmental and somatic dysfunction of lumbar region; M99.14 Subluxation complex (vertebral) of sacral region; M47.816 Spondylosis without myelopathy or radiculopathy, lumbar region; M48.061 Spinal stenosis, lumbar region without neurogenic claudication; Z98.890 Other specified postprocedural states
CPT/HCPCS: 72148

== ENCOUNTER 2023-11-29 12:02 | Outpatient (CLI) | payer MEDICARE | END 2023-11-29 12:03 | disposition home or self-care (01) | LOC: SCSRAD 12:02 | PROVIDERS: ATTEND Family Medicine | DX: M25.562 Pain in left knee (principal) ==

== ENCOUNTER 2024-10-09 12:21 | Outpatient (CLI) | payer MEDICARE | END 2024-10-09 12:22 | disposition home or self-care (01) | LOC: SCSRAD 12:21 | PROVIDERS: ATTEND Family Medicine | DX: M54.42 Lumbago with sciatica, left side (principal); M47.816 Spondylosis without myelopathy or radiculopathy, lumbar region; Z98.890 Other specified postprocedural states | CPT/HCPCS: 72110 ==

== ENCOUNTER 2024-11-02 11:04 | Outpatient (CLI) | payer MEDICARE | END 2024-11-02 11:05 | disposition home or self-care (01) | LOC: SCSMRI 11:04 | PROVIDERS: ATTEND Orthopaedic Surgery | DX: M47.26 Other spondylosis with radiculopathy, lumbar region (principal); M48.07 Spinal stenosis, lumbosacral region; M48.061 Spinal stenosis, lumbar region without neurogenic claudication | CPT/HCPCS: 72148 ==